=== PATIENT | male | born 1995 | race African-American/Black ===

== ENCOUNTER 2016-10-10 23:04 | Day surgery (SDC) | payer OTHER ==
[~2016-10-10] VITALS: Ht 170.2 cm; Wt 70.3 kg
[2016-10-11] VITALS (9 sets, daily range): BP systolic 110–138; BP diastolic 55–67
[2016-10-11] MEDS ORDERED: ONDANSETRON 4MG/2ML VIAL (J2405) As Ordered ONE ×2 (00:19→13:28)
[2016-10-11] MEDS ORDERED: HYDROmorphone HCL 1 MG/ML SYRINGE (J1170) As Ordered ONE ×2 (00:19→03:56)
[2016-10-11 00:40] LABS: BASO # 0.1 K/mm3 (0.0-0.2); BASO % 1.1 % (0.0-1.0); EOS # 0.1 K/mm3 (0.0-0.50); LARGE UNSTAINED CELL # 0.1 K/mm3 (0.0-0.4); LARGE UNSTAINED CELL % 0.9 % (0.0-4.0); LYMPH # 0.8 K/mm3 (1.5-6.5); MEAN CORPUSCULAR HEMOGLOBIN 27.2 pg (27.0-33.0); MEAN CORPUSCULAR HGB CONC 31.2 g/dl (32.0-36.5); MONO # 0.5 K/mm3 (0.0-0.8); MONO % 5.1 % (0.0-5.0); NEUTROPHILS # 8.6 K/mm3 (1.8-7.7); NEUTROPHILS % 84.8 % (36.0-66.0); PLATELET COUNT, AUTOMATED 170 k/mm3 (150-450); RED CELL DISTRIBUTION WIDTH 12.9 % (11.5-14.5); WHITE BLOOD COUNT 10.2 K/mm3 (4.0-10.0)
[2016-10-11 00:53] LABS: ALBUMIN 4.2 GM/DL (3.2-5.2); ALBUMIN/GLOBULIN RATIO 1.08 (1.00-1.93); BILIRUBIN,DIRECT 0.2 MG/DL (0.0-0.2); BILIRUBIN,TOTAL 0.9 MG/DL (0.2-1.0); CALCIUM LEVEL 9.1 MG/DL (8.5-10.1); CREATININE FOR GFR 1.67 MG/DL (0.70-1.30); GLOMERULAR FILTRATION RATE 54.5 (>60); TOTAL PROTEIN 8.1 GM/DL (6.4-8.2)
[2016-10-11] MEDS ORDERED: ISOVUE-370 76% 100ML VIAL (Q9967) As Ordered ONE (02:04)
--- NOTE | 2016-10-11 03:10 | REPUSA ---
CLINICAL HISTORY: Abdominal pain. TECHNIQUE: Multiple axial, sagittal and coronal CT images were obtained through the abdomen and pelvi s after administration of oral and intravenous contrast material. Images were obtained before and aft er IV contrast administration. COMMENTS: The liver is of uniform attenuation without mass or defect. There is no intra or extrahepatic biliary ductal dilatation. The spleen is normal. The gallbladder is within normal limits. The pancreas is of normal contour and attenuation characteristics. There is no evidence of adrenal mass. Both kidneys demonstrate prompt and equal nephrograms. The kidneys are normal in size, shape and conf iguration. There is no evidence of renal or ureteral mass. No renal or ureteral calculi are identifie d. There is no hydroureter or hydronephrosis. Enlarged appendix measuring 1.3 cm. Abnormal enhancement of its wall. Surrounding 3 fluid and fat str anding. There is no bowel wall thickening. No evidence for small or large bowel obstruction. There is no evidence of intrinsic or extrinsic bladder mass. Mild diffuse thickening of the wall of t he bladder. It can progress to the stomach. Images of the lung bases show no evidence of pleural or parenchymal mass. There are no pleural effusi ons. The bony structures are free of lytic or blastic lesions. Multilevel degenerative changes are seen in volving the thoracolumbar spine. Scattered calcifications are seen involving the aorta and major bran ches compatible with atherosclerosis. IMPRESSION: Acute appendicitis. No perforation or abscess formation. Gastroparesis. Thickened bladder. Thank you for your kind referral of this patient.
[2016-10-11] MEDS ORDERED: ZOSYN 3.375 GM VIAL (J2543) As Ordered ONE (03:45)
[2016-10-11] MEDS ORDERED: LR 1,000 ML IV SCH ×2 (04:01→15:15)
[2016-10-11] MEDS ORDERED: NORCO, ANEXSIA 5/325MG TABLET (HYDROcodone/ACETAMINOPHEN) PO PRN (04:15)
[2016-10-11] MEDS ORDERED: ONDANSETRON 4MG/2ML VIAL (J2405) IV PRN ×2 (04:15→15:15)
[2016-10-11] MEDS ORDERED: ACETAMINOPHEN TAB 650MG DOSE (2X325MG) PO PRN (04:15)
--- NOTE | 2016-10-11 04:40 | EDDOCDS ---
Physician Documentation [facility] Name: Juan Diego Vences Age: 20 yrs Sex: Male : 1995 Arrival Date: 10/10/2016 Time: 23:04 Bed 8 Private MD: KSRHIANNON QUINTERO Disposition: 10/11/16 03:30 Hospitalization ordered by Yunior Partida for Inpatient Admission. Preliminary diagnosis is Acute appendicitis with localized peritonitis. - Bed requested for M PED. - Status is Inpatient Admission. jp6 - Condition is Stable. - Problem is new. - Symptoms have improved. Historical: - Allergies: No known drug Allergies; - Home Meds: 1. ibuprofen 300 mg oral tab as needed - PMHx: none; - PSHx: none; - Social history: Smoking status: Patient states was never smoker of tobacco. No barriers to communication noted, The patient speaks fluent Amharic, Speaks appropriately for age. - Family history: Not pertinent. - : The pt / caregiver states he / she is not on anticoagulants. Home medication list is obtained from the patient. - Exposure Risk Screening:: None identified. Vital Signs: 10/10 23:06 BP 151 / 70; Pulse 89; Resp 18 S; Temp 96.7(O); Pulse Ox 100% on R/A; Weight 70.31 kg / dd6 155.01 lbs (R); Height 5 ft. 7 in. (170.18 cm) (R); Pain 10/10; 10/11 00:29 BP 134 / 75 (auto/); jp6 00:30 Pulse 86 MON; Pulse Ox 100% ; jp6 00:59 BP 132 / 69 (auto/); jp6 01:00 Pulse 78 MON; Pulse Ox 98% ; jp6 01:29 BP 135 / 63 (auto/); jp6 01:31 Pulse 82 MON; Pulse Ox 96% ; jp6 01:59 BP 123 / 61 (auto/); jp6 02:00 Pulse 80 MON; Pulse Ox 95% ; jp6 04:02 BP 133 / 63 (auto/); jp6 04:03 Pulse 82 MON; Pulse Ox 96% ; jp6 04:03 Temp 99(O); Pain 6/10; jp6 04:03 Pulse 82 MON; Pulse Ox 96% ; jp6 10/10 23:06 Body Mass Index 24.28 (70.31 kg, 170.18 cm) dd6 MDM: 00:14 Financial registration complete. slh 00:17 IV Saline Lock ordered. cs11 00:17 NS 0.9% 2000 ml IV at bolus once ordered. cs11 00:17 Dilaudid - HYDROmorphone 1 mg IVP once ordered. cs11 00:17 Ondansetron 4 mg IVP once ordered. cs11 00:18 CBC with Diff Ordered. EDMS 00:18 MED Profile Ordered. EDMS 00:18 Liver Profile Ordered. EDMS 00:18 Amylase Ordered. EDMS 00:18 Lipase Ordered. EDMS 00:18 Pt & Aptt Ordered. EDMS 00:19 CT ABD & PELVIS: IV Contrast Only Ordered. EDMS 01:39 CBC with Diff Reviewed. cs11 01:39 MED Profile Reviewed. cs11 01:39 Liver Profile Reviewed. cs11 01:39 Amylase Reviewed. cs11 01:39 Lipase Reviewed. cs11 01:39 Pt & Aptt Reviewed. cs11 01:43 [facility] [place] [facility] Payment Agreement was scanned into [employer] and attached to record. [facility] 03:27 Piperacillin-Tazobactam 3.375 grams IVPB once over 30 mins; dilute in 50mL of NS or D5W cs11 ordered. 03:27 CT ABD & PELVIS: IV Contrast Only Reviewed. cs11 03:27 BED REQUEST+ADM ordered. EDMS 03:55 Dilaudid - HYDROmorphone 1 mg IVP once ordered. cs11 04:06 Admission / Observation Status ordered. EDMS 04:06 NPO DIET ordered. EDMS Administered Medications: 00:30 Drug: NS 0.9% 2000 ml [sodium chloride 0.9 % intravenous solution] Route: IV; Rate: jp6 bolus; Site: right antecubital; 00:30 Drug: Dilaudid - HYDROmorphone 1 mg [hydromorphone 1 mg/mL injection syringe (1 mL)] jp6 Route: IVP; Site: right antecubital; 00:30 Drug: Ondansetron 4 mg Route: IVP; Site: right antecubital; jp6 04:04 Drug: Piperacillin-Tazobactam 3.375 grams [piperacillin-tazobactam 3.375 gram jp6 intravenous solution] Route: IVPB; Infused Over: 30 mins; Site: right antecubital; 04:05 Drug: Dilaudid - HYDROmorphone 1 mg [hydromorphone 1 mg/mL injection syringe (1 mL)] jp6 Route: IVP; Site: right antecubital; Signatures: Dispatcher [employer] Essie Mcdonald, RN RN kmg1 Ciro , BROCK Jeffery RN, Craig, DO DO [facility] Katiuska Yeboah [facility] Bridget Gomez RN RN jp6 The chart was reviewed and I authenticate all verbal orders and agree with the evaluation and treatment provided.Attachments: 01:43 [facility] Payment Agreement [facility] MTDD
--- NOTE | 2016-10-11 04:40 | EDDOCDS ---
Nurse's Notes [facility] Name: Juan Diego eVnces Age: 20 yrs Sex: Male : 1995 Arrival Date: 10/10/2016 Time: 23:04 Bed 8 Private MD: WVRHIANNON QUINTERO Diagnosis: Acute appendicitis with localized peritonitis Presentation: 10/10 23:08 Presenting complaint: Patient states: Abdominal pain diffuse for approx 1 hour. kmg1 Vomiting. Risk factors: the patient reports not having a history of previous torsion. Adult Sepsis Screening: The patient does not have new or worsening altered mentation. Patient's respiratory rate is less than 22. Systolic blood pressure is greater than 100. Patient has a qSOFA score of 0- Negative Sepsis Screen. Suicide/Homicide risk assessment- the patient denies having any suicidal and/or homicidal ideations and does not present with any other emotional, behavioral or mental health complaints. 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 Transition of care: patient was not received from another setting of care. 23:08 Acuity: STEVEN Level 3 km 23:08 Method Of Arrival: Walkin/Carried/Asstd km Triage Assessment: 23:11 General: Appears uncomfortable, Behavior is appropriate for age, cooperative. Pain: kmg1 Location: abdomen Pain currently is 10 out of 10 on a pain scale. Quality of pain is described as squeezing, Pain began 1 hour ago. Pt Declines HIV testing. GI: Reports lower abdominal pain, upper abd pain, vomiting. Historical: - Allergies: No known drug Allergies; - Home Meds: 1. ibuprofen 300 mg oral tab as needed - PMHx: none; - PSHx: none; - Social history: Smoking status: Patient states was never smoker of tobacco. No barriers to communication noted, The patient speaks fluent Tanzanian, Speaks appropriately for age. - Family history: Not pertinent. - : The pt / caregiver states he / she is not on anticoagulants. Home medication list is obtained from the patient. - Exposure Risk Screening:: None identified. Screenin/16 00:09 Screening information is obtained from the patient. Fall risk: No risks identified. jp6 Assistance ADL's: requires no assistance with activities of daily living. Abuse/DV Screen: The patient / caregiver reports he/she is: not in a situation that causes fear, pain or injury. Nutritional screening: No deficits noted. Advance Directives: Currently, there is no health care proxy. There is no active DNR order. There is no living will. home support is adequate. Assessment: 00:09 General: Appears distressed, uncomfortable, well developed, well nourished, Behavior is jp6 appropriate for age, cooperative. Pain: Location: abdomen Pain currently is 8 out of 10 on a pain scale. Neurological: No deficits noted. Level of Consciousness is awake, alert, Oriented to person, place, time. EENT: No deficits noted. Cardiovascular: No deficits noted. Heart tones S1 S2 present. Respiratory: Airway is patent Respiratory effort is even, unlabored, Respiratory pattern is regular, symmetrical, Breath sounds are clear bilaterally. GI: Abdomen is flat, non- distended Bowel sounds present X 4 quads. hyperactive in right upper quadrant, left upper quadrant, right lower quadrant and left lower quadrant Abd is tender to palpation in right lower quadrant Abd is rigid Guarding noted. : No deficits noted. Derm: Skin is pink, warm & dry. Musculoskeletal: No deficits noted. 01:00 Reassessment: states pain is 4/10. Pain: Pain currently is 4 out of 10 on a pain scale. jp6 Cardiovascular: No deficits noted. Respiratory: Airway is patent Respiratory effort is even, unlabored, Respiratory pattern is regular, symmetrical. Derm: Skin is pink, warm & dry. 02:00 Reassessment: Patient appears in no apparent distress at this time. Patient states jp6 feeling better. General: Appears in no apparent distress, comfortable, Behavior is appropriate for age, cooperative. Pain: Pain currently is 3 out of 10 on a pain scale. Neurological: Level of Consciousness is awake, alert, Oriented to person, place, time. Respiratory: Airway is patent Respiratory effort is even, unlabored, Respiratory pattern is regular, symmetrical. Derm: Skin is pink, warm & dry. 02:54 Reassessment: Patient appears in no apparent distress at this time. Patient states jp6 feeling better. Pain: Location: abdomen Pain currently is 4 out of 10 on a pain scale. Respiratory: Airway is patent Respiratory effort is even, unlabored, Respiratory pattern is regular, symmetrical. Derm: Skin is pink, warm & dry. 04:15 Reassessment: c/o abdominal pain 6/10. VS stable. IV antibiotics infusing as ordered.. jp6 Pain: Location: abdomen Pain currently is 6 out of 10 on a pain scale. Neurological: Level of Consciousness is awake, alert, Oriented to person, place, time. EENT: No deficits noted. Cardiovascular: No deficits noted. Respiratory: Airway is patent Respiratory effort is even, unlabored, Respiratory pattern is regular, symmetrical. Derm: Skin is pink, warm & dry. Vital Signs: 10/10 23:06 BP 151 / 70; Pulse 89; Resp 18 S; Temp 96.7(O); Pulse Ox 100% on R/A; Weight 70.31 kg dd6 (R); Height 5 ft. 7 in. (170.18 cm) (R); Pain 10; 10/11 00:29 BP 134 / 75 (auto/); jp6 00:30 Pulse 86 MON; Pulse Ox 100% ; jp6 00:59 BP 132 / 69 (auto/); jp6 01:00 Pulse 78 MON; Pulse Ox 98% ; jp6 01:29 BP 135 / 63 (auto/); jp6 01:31 Pulse 82 MON; Pulse Ox 96% ; jp6 01:59 BP 123 / 61 (auto/); jp6 02:00 Pulse 80 MON; Pulse Ox 95% ; jp6 04:02 BP 133 / 63 (auto/); jp6 04:03 Pulse 82 MON; Pulse Ox 96% ; jp6 04:03 Temp 99(O); Pain 6/10; jp6 04:03 Pulse 82 MON; Pulse Ox 96% ; jp6 10/10 23:06 Body Mass Index 24.28 (70.31 kg, 170.18 cm) dd6 Vitals: 10/10 23:06 Log In Time: October 10, 2016 at 23:04. dd6 ED Course: 23:05 Patient visited by Prakash Berry PCA. dd6 23:05 [facility] dd6 23:05 Patient moved to Waiting dd6 23:06 Patient moved to Pre RCE dd6 23:10 Triage Initiated kmg1 23:53 Patient moved to 8 kmg1 23:54 Bridget Gomez,RN is Primary Nurse. jp6 23:54 Quincy Vela DO is Attending Physician. cs11 23:54 Patient visited by Quincy Vela DO. cs11 10/11 00:09 The patient / caregiver is instructed regarding the plan of care and ED course. jp6 00:09 Inserted saline lock: 20 gauge in right antecubital area and blood collected. No jp6 procedures done that require assistance. 00:54 Patient visited by Lisbet Galindo PCA. negro 01:43 [facility] Payment Agreement was scanned into [employer] and attached to record. [facility] 02:02 Patient visited by Bridget Gomez RN. jp6 03:03 Patient visited by Lisbet Galindo PCA. negro 03:19 CT ABD & PELVIS: IV Contrast Only Returned. EDMS 03:30 Yunior Partida MD is Hospitalizing Provider. cs11 04:15 Pulse ox on. NIBP on. jp6 Administered Medications: 00:30 Drug: NS 0.9% 2000 ml [sodium chloride 0.9 % intravenous solution] Route: IV; Rate: jp6 bolus; Site: right antecubital; 00:30 Drug: Dilaudid - HYDROmorphone 1 mg [hydromorphone 1 mg/mL injection syringe (1 mL)] jp6 Route: IVP; Site: right antecubital; 00:30 Drug: Ondansetron 4 mg Route: IVP; Site: right antecubital; jp6 04:04 Drug: Piperacillin-Tazobactam 3.375 grams [piperacillin-tazobactam 3.375 gram jp6 intravenous solution] Route: IVPB; Infused Over: 30 mins; Site: right antecubital; 04:05 Drug: Dilaudid - HYDROmorphone 1 mg [hydromorphone 1 mg/mL injection syringe (1 mL)] jp6 Route: IVP; Site: right antecubital; Order Results: Lab Order: CBC with Diff; SPEC'M 10/11/16 00:05 Test: WHITE BLOOD COUNT; Value: 10.2; Range: 4.0-10.0; Abnormal: Above high normal; Units: K/mm3; Status: F Test: RED BLOOD COUNT; Value: 5.19; Range: 4.30-6.10; Units: M/mm3; Status: F Test: HEMOGLOBIN; Value: 14.1; Range: 14.0-18.0; Units: g/dl; Status: F Test: HEMATOCRIT; Value: 45.2; Range: 42.0-52.0; Units: %; Status: F Test: MEAN CORPUSCULAR VOLUME; Value: 87.0; Range: 80.0-96.0; Units: fl; Status: F Test: MEAN CORPUSCULAR HEMOGLOBIN; Value: 27.2; Range: 27.0-33.0; Units: pg; Status: F Test: MEAN CORPUSCULAR HGB CONC; Value: 31.2; Range: 32.0-36.5; Abnormal: Below low normal; Units: g/dl; Status: F Test: RED CELL DISTRIBUTION WIDTH; Value: 12.9; Range: 11.5-14.5; Units: %; Status: F Test: PLATELET COUNT, AUTOMATED; Value: 170; Range: 150-450; Units: k/mm3; Status: F Test: NEUTROPHILS %; Value: 84.8; Range: 36.0-66.0; Abnormal: Above high normal; Units: %; Status: F Test: LYMPH %; Value: 7.0; Range: 24.0-44.0; Abnormal: Below low normal; Units: %; Status: F Test: MONO %; Value: 5.1; Range: 0.0-5.0; Abnormal: Above high normal; Units: %; Status: F Test: EOS %; Value: 1.0; Range: 0.0-3.0; Units: %; Status: F Test: BASO %; Value: 1.1; Range: 0.0-1.0; Abnormal: Above high normal; Units: %; Status: F Test: LARGE UNSTAINED CELL %; Value: 0.9; Range: 0.0-4.0; Units: %; Status: F Test: NEUTROPHILS #; Value: 8.6; Range: 1.8-7.7; Abnormal: Above high normal; Units: K/mm3; Status: F Test: LYMPH #; Value: 0.8; Range: 1.5-6.5; Abnormal: Below low normal; Units: K/mm3; Status: F Test: MONO #; Value: 0.5; Range: 0.0-0.8; Units: K/mm3; Status: F Test: EOS #; Value: 0.1; Range: 0.0-0.50; Units: K/mm3; Status: F Test: BASO #; Value: 0.1; Range: 0.0-0.2; Units: K/mm3; Status: F Test: LARGE UNSTAINED CELL #; Value: 0.1; Range: 0.0-0.4; Units: K/mm3; Status: F Lab Order: MED Profile; SPEC'M 10/11/16 00:05 Test: GLUCOSE, FASTING; Value: 91; Range: 70-105; Units: MG/DL; Status: F Test: BLOOD UREA NITROGEN; Value: 16; Range: 7-18; Units: MG/DL; Status: F Test: CREATININE FOR GFR; Value: 1.67; Range: 0.70-1.30; Abnormal: Above high normal; Units: MG/DL; Status: F Test: GLOMERULAR FILTRATION RATE; Value: 54.5; Range: >60; Abnormal: Below low normal; Status: F Test: SODIUM LEVEL; Value: 141; Range: 136-145; Units: MEQ/L; Status: F Test: POTASSIUM SERUM; Value: 4.0; Range: 3.5-5.1; Units: MEQ/L; Status: F Test: CHLORIDE LEVEL; Value: 102; Range: 98-107; Units: MEQ/L; Status: F Test: CARBON DIOXIDE LEVEL; Value: 31; Range: 21-32; Units: MEQ/L; Status: F Test: ANION GAP; Value: 8; Range: 8-16; Units: MEQ/L; Status: F Test: CALCIUM LEVEL; Value: 9.1; Range: 8.5-10.1; Units: MG/DL; Status: F Test Note: ; Units are mL/min/1.73 m2 Chronic Kidney Disease Staging per NKF: Stage I & II GFR >=60 Normal to Mildly Decreased Stage III GFR 30-59 Moderately Decreased Stage IV GFR 15-29 Severely Decreased Stage V GFR <15 Very Little GFR Left ESRD GFR <15 on CLASSIFIED AD CLERK Lab Order: Liver Profile; SPEC'M 10/11/16 00:05 Test: AST/SGOT; Value: 188; Range: 15-37; Abnormal: Above high normal; Units: U/L; Status: F Test: ALT/SGPT; Value: 80; Range: 12-78; Abnormal: Above high normal; Units: U/L; Status: F Test: ALKALINE PHOSPHATASE; Value: 132; Range: 45-117; Abnormal: Above high normal; Units: U/L; Status: F Test: BILIRUBIN,TOTAL; Value: 0.9; Range: 0.2-1.0; Units: MG/DL; Status: F Test: BILIRUBIN,DIRECT; Value: 0.2; Range: 0.0-0.2; Units: MG/DL; Status: F Test: TOTAL PROTEIN; Value: 8.1; Range: 6.4-8.2; Units: GM/DL; Status: F Test: ALBUMIN; Value: 4.2; Range: 3.2-5.2; Units: GM/DL; Status: F Test: ALBUMIN/GLOBULIN RATIO; Value: 1.08; Range: 1.00-1.93; Status: F Lab Order: Amylase; SPEC' 10/11/16 00:05 Test: AMYLASE; Value: 129; Range: 25-115; Abnormal: Above high normal; Units: U/L; Status: F Lab Order: Lipase; SPEC' 10/11/16 00:05 Test: LIPASE; Value: 88; Range: 73-393; Units: U/L; Status: F Lab Order: Pt & Aptt; SPEC' 10/11/16 00:05 Test: PROTHROMBIN TIME; Value: 13.3; Range: 12.3-14.5; Units: SECONDS; Status: F Test: INR; Value: 1.00; Status: F Test: PARTIAL THROMBOPLASTIN TIME; Value: 31.4; Range: 26.6-37.1; Units: SECONDS; Status: F Test Note: ; THERAPUTIC HUMAN INR VALUES INDICATIONS NORMAL RANGES PROPHYLAXIS/TREATMENT OF: VENOUS THROMBOSIS 2.0-3.0 PULMONARY EMBOLISM 2.0-3.0 PREVENTION OF SYSTEMIC EMBOLISM FROM: TISSUE HEART VALVES 2.0-3.0 ACUTE MYOCARDIAL INFARCTION 2.0-3.0 VALVULAR HEART DISEASE 2.0-3.0 ATRIAL FIBRILLATION 2.0-3.0 MECHANICAL VALVES(HIGH RISK) 2.5-3.5 RECURRENT MYOCARDIAL INFARCTION 2.5-3.5 Radiology Order: CT ABD & PELVIS: IV Contrast Only Test: CT ABD & PELVIS: IV Contrast Only REASON FOR EXAMINATION: Appendicitis; ; CLINICAL HISTORY: Abdominal pain.; TECHNIQUE: Multiple axial, sagittal and coronal CT images were obtained through the abdomen and pelvi; s after administration of oral and intravenous contrast material. Images were obtained before and aft; er IV contrast administration.; COMMENTS:; The liver is of uniform attenuation without mass or defect. There is no intra or extrahepatic biliary; ductal dilatation. The spleen is normal. The gallbladder is within normal limits. The pancreas is of; normal contour and attenuation characteristics. There is no evidence of adrenal mass.; Both kidneys demonstrate prompt and equal nephrograms. The kidneys are normal in size, shape and conf; iguration. There is no evidence of renal or ureteral mass. No renal or ureteral calculi are identifie; d. There is no hydroureter or hydronephrosis.; Enlarged appendix measuring 1.3 cm. Abnormal enhancement of its wall. Surrounding 3 fluid and fat str; anding. There is no bowel wall thickening. No evidence for small or large bowel obstruction.; There is no evidence of intrinsic or extrinsic bladder mass. Mild diffuse thickening of the wall of t; he bladder. It can progress to the stomach.; Images of the lung bases show no evidence of pleural or parenchymal mass. There are no pleural effusi; ons.; The bony structures are free of lytic or blastic lesions. Multilevel degenerative changes are seen in; volving the thoracolumbar spine. Scattered calcifications are seen involving the aorta and major bran; ches compatible with atherosclerosis.; IMPRESSION:; Acute appendicitis.; No perforation or abscess formation.; Gastroparesis.; Thickened bladder.; Thank you for your kind referral of this patient.; ; Outcome: 03:30 Decision to Hospitalize by Provider. cs11 04:27 Discharge Assessment: Patient awake, alert and oriented x 3. No cognitive and/or jp6 functional deficits noted. Patient verbalized understanding of disposition instructions. patient administered narcotics - yes. Patient was admitted to the hospital or transferred to another facility. The following High Risk Discharge criteria are identified: None. Admitted to Pediatrics accompanied by tech, via stretcher, with chart. Condition: unchanged. CT Study completed. Admission hand-off: Report called to Bridget GUTIÉRREZ. Property :Personal belongings accompany Pt. 04:39 Patient left the ED. jp6 Signatures: Dispatcher [employer] EDMS Rosado, Essie, RN RN kmg1 Prakash Berry, MARINE EXTENSION AGENT MARINE EXTENSION AGENT dd6 Lisbet Galindo, MARINE EXTENSION AGENT MARINE EXTENSION AGENT negro Quincy Vela, DO DO cs11 Katiuska Yeboah Jessica,RN RN jp6 MTDD
[2016-10-11] MEDS: metroNIDAZOLE 500 MG in APPROPRIATE DILUENT 1 EA IV SCH ×2 (05:55→17:11)
[2016-10-11] MEDS: AMPICILLIN SOD/SULBACTAM SOD 3 GM in D5W MINI-BAG PLUS 100 ML IV SCH ×2 (08:25→17:11)
[2016-10-11] MEDS: MORPHINE 4 MG/ML 1ML SYRINGE IV PRN ×3 (08:26→17:51)
--- NOTE | 2016-10-11 10:11 | HPE ---
DATE OF ADMISSION: 10/11/2016 CHIEF COMPLAINT: Abdominal pain. HISTORY OF PRESENT ILLNESS: Mr. 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 last night after about a 3-hour history of ongoing and increasing right-sided abdominal pain. The patient was in his usual state of health until roughly at about 06:00 p.m. when he started having some crampy generalized abdominal pain, later on becoming sharp and constant, localizing to the periumbilical area, and also radiating to the right lower quadrant area. It was associated with nausea, a couple episodes of vomiting. He denies any sick contacts or eating any usual food. No other members of his household are sick. Due to the increasing severity, he presented to the emergency department. He was worked up and found to have evidence for acute appendicitis. ALLERGIES: No known drug allergies. HOME MEDICATIONS: The patient took ibuprofen as needed. PAST SURGICAL HISTORY: None. PAST HISTORY FOR GENERAL ANESTHESIA: None. 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 He denies smoking. Occasional alcohol use. Denies any recreational drug use. REVIEW OF SYSTEMS: The patient was in his usual state of health prior to the abdominal pain starting. Multisystem review is all negative except those mentioned in history of present illness (HPI). PHYSICAL EXAMINATION: The patient is seen laying in the bed, appears mildly uncomfortable secondary to ongoing abdominal pain. Otherwise pleasant and cooperative. Appears well built. Skin is warm and dry. Normocephalic, atraumatic. No facial asymmetry. No facial or scalp lesions noted. He has pink palpebral conjunctivae and anicteric sclerae. Lips appear mildly dry. Neck is supple. No thyromegaly. No palpable lymphadenopathies. No chest wall abnormalities. Lung sounds are clear to auscultation bilaterally. No wheezing appreciated. Heart: Rate and rhythm are regular with no murmurs. Abdomen: Is flat, soft, mildly distended, slightly tympanitic on percussion, tender over the right lower quadrant area over at McBurney's point. Slight rebound tenderness locally. Mild radiation of pain towards the right lower quadrant when palpating the left lower quadrant area. Small umbilical hernia appreciated, reducible. No hepatosplenomegaly. No masses palpable. Extremities: Without any deformities. LABORATORY: White cell count is 10.2, hemoglobin 14.1, hematocrit 45.2, platelet count 170, neutrophils are 85%. Chemistries: Sodium 141, potassium 4.0, chloride is 102, CO2 31, BUN of 16, creatinine is 1.67, glucose 91, AST 188, ALT 83, alkaline phosphatase 132, total bilirubin 0.9, amylase 129, lipase 88. IMAGING STUDIES: CT of the abdomen and pelvis was done. This was done with contrast. I reviewed the images myself. Findings include evidence for acute appendicitis, enlarged appendix measuring 1.3 cm, with abnormal enhancement of its wall, surrounding free fluid and fat stranding, no bowel wall thickening, no evidence for small or large bowel obstruction. IMPRESSION: Acute appendicitis with localized peritonitis. Patient is receiving Unasyn and metronidazole which should be adequate in coverage for the disease. We are awaiting availability of the operating room. I have discussed with the patient the need for surgery, the benefits of the surgery and risks on doing the surgery as well as the details of the procedure. We are going to perform laparoscopic appendectomy. Consent was obtained from the patient. I expect the patient probably will stay overnight for continuation of perioperative antibiotics and pain control. QUINTEN
[2016-10-11] MEDS ORDERED: BUPIVACAINE HCL 0.25% 30 ML VIAL As Ordered ONE (11:37)
[2016-10-11] MEDS ORDERED: LIDOCAINE 1% SDV INJ 30 ML VIAL As Ordered ONE (11:37)
[2016-10-11] MEDS ORDERED: ROCURONIUM BROMIDE 50 MG/5 ML VIAL As Ordered ONE (13:27)
[2016-10-11] MEDS ORDERED: PROPOFOL 200 MG/20 ML VIAL As Ordered ONE (13:27)
[2016-10-11] MEDS ORDERED: GLYCOPYRROLATE INJ 0.2 MG/ML 2 ML VIAL As Ordered ONE (13:27)
[2016-10-11] MEDS ORDERED: fentaNYL 100 MCG/2 ML INJECTION (J3010) As Ordered ONE ×2 (13:27→14:13)
[2016-10-11] MEDS ORDERED: MIDAZOLAM INJ 2 MG/2 ML VIAL (J2250) As Ordered ONE (13:27)
[2016-10-11] MEDS ORDERED: KETOROLAC 60 MG/2 ML VIAL (J1885) As Ordered ONE (13:28)
[2016-10-11] MEDS ORDERED: NEOSTIGMINE 1MG/ML 5 ML SYRINGE (J2710) As Ordered ONE (13:28)
[2016-10-11] MEDS ORDERED: LIDOCAINE 2% INJ 100 MG/5 ML SDV (FOR ANES.) As Ordered ONE (13:28)
[2016-10-11] MEDS ORDERED: UNASYN 1.5 GM VIAL As Ordered ONE (13:44)
[2016-10-11] MEDS ORDERED: metroNIDAZOLE/NACL 500MG(5MG/ML)100 ML BAG (S0030) As Ordered ONE (13:44)
[2016-10-11] MEDS ORDERED: METOCLOPRAMIDE INJ 10MG/2ML VIAL (J2765) IV PRN (15:15)
[2016-10-11] MEDS ORDERED: PERCOCET 5MG/325MG TAB PO PRN (15:15)
[2016-10-11] MEDS ORDERED: fentaNYL 100 MCG/2 ML INJECTION (J3010) IV PRN (15:15)
[2016-10-11] MEDS ORDERED: PERCOCET 5MG/325MG TAB As Ordered ONE (15:43)
[2016-10-11] MEDS ORDERED: MORPHINE 10 MG/ML 1ML VIAL As Ordered ONE (15:43)
[2016-10-11] MEDS: MORPHINE 2 MG/ML 1ML SYRINGE IV PRN ×5 (15:48→16:08)
--- NOTE | 2016-10-11 18:44 | RO ---
DATE OF PROCEDURE: 10/11/2016 PREOPERATIVE DIAGNOSIS: Acute appendicitis. DIAGNOSIS: Acute appenditis. PROCEDURE: Laparoscopic appendectomy. SURGEON: Dr. Partida. SENIOR MEDICAL TRANSCRIPTIONIST: None. ANESTHESIA: General anesthesia. ESTIMATED BLOOD LOSS: Less than 25 mL. COMPLICATIONS: None. SPECIMENS: Appendix. Otherwise the patient tolerated the procedure well. 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 I saw him in the artery was started on intravenous (IV) antibiotics. Once was the operating room was available was brought to the operating room (OR), placed on the table. We used the compression boots for deep venous thrombosis (DVT) prophylaxis. General endotracheal anesthesia started without any problems. His abdomen prepped and draped in usual sterile fashion. After surgical time-out we began our surgery. I created a small transverse incision top of his umbilicus, deepened to the anterior fascia. A Veress needle placed in a controlled fashion. Intraabdominal placement confirmed with saline drop technique. CO2 insufflation started to pressure of 15 mmHg. Using the same incision a 12 mm Visiport was placed under direct vision of laparoscope. The insertion site was inspected for injury, none was found. He was placed in Trendelenburg position right side tilted up roughly about 40 degrees to further expose the appendix under direct vision of 5 mm suprapubic port. A 5 mm left lower quadrant port was placed. Diagnostic laparoscopy of visualized portions of bowel appear normal within normal limits. There is some mild irritation behind the cecum. The appendix was located. This was thickened throughout its course. No perforation or ischemia noted. No free fluid noted. The appendix was placed into view and a window created at the base of the appendix in between the appendix and the mesoappendix with a [place] instrument using a linear stapler with a blue load. The appendix was divided at its base. The staple line was inspected and there was no bleeding noted. The mesoappendix was further dissected free and a second firing of the same linear stapler with vascular load was done to disconnect the appendix from the mesoappendix . After this, I inspected the staple lines. There is a few points of bleeding into the na, easily controlled with Bovie cautery. The appendix was through an EndoCatch bag retrieved through umbilical port site under insufflation. We inspected the surgical site and once satisfied of the hemostasis, the abdomen was deflated. All ports removed. The umbilical fascial defect repaired in #0 Vicryl in mattress fashion. All skin incisions closed with #4-0 Monocryl in subcuticular fashion. Steri-Strips and gauze dressings placed over the incision. The patient promptly awakened, extubated, brought to recovery room stable. QUINTEN
[2016-10-11] MEDS: NORCO, ANEXSIA 5/325MG TABLET (HYDROcodone/ACETAMINOPHEN) PO PRN (21:16)
[2016-10-12] VITALS: BP 126/60
[2016-10-12 04:00] VITALS: BP 120/70
[2016-10-12] MEDS: NORCO, ANEXSIA 5/325MG TABLET (HYDROcodone/ACETAMINOPHEN) PO PRN ×2 (04:14→08:37)
[2016-10-12 08:00] VITALS: BP 121/58
[2016-10-12] MEDS ORDERED: NORCOTAB PO (10:50)
--- NOTE | 2016-10-13 05:40 | EDDOCDS ---
Physician Documentation [facility] Name: Juan Diego Vences Age: 20 yrs Sex: Male : 1995 Arrival Date: 10/10/2016 Time: 23:04 Bed 8 Private MD: TNRHIANNON QUINTERO Disposition: 10/11/16 03:30 Hospitalization ordered by Yunior Partida for Inpatient Admission. Preliminary diagnosis is Acute appendicitis with localized peritonitis. - Bed requested for M PED. - Status is Inpatient Admission. jp6 - Condition is Stable. - Problem is new. - Symptoms have improved. Historical: - Allergies: No known drug Allergies; - Home Meds: 1. ibuprofen 300 mg oral tab as needed - PMHx: none; - PSHx: none; - Social history: Smoking status: Patient states was never smoker of tobacco. No barriers to communication noted, The patient speaks fluent Tajik, Speaks appropriately for age. - Family history: Not pertinent. - : The pt / caregiver states he / she is not on anticoagulants. Home medication list is obtained from the patient. - Exposure Risk Screening:: None identified. Vital Signs: 10/10 23:06 BP 151 / 70; Pulse 89; Resp 18 S; Temp 96.7(O); Pulse Ox 100% on R/A; Weight 70.31 kg / dd6 155.01 lbs (R); Height 5 ft. 7 in. (170.18 cm) (R); Pain 10/10; 10/11 00:29 BP 134 / 75 (auto/); jp6 00:30 Pulse 86 MON; Pulse Ox 100% ; jp6 00:59 BP 132 / 69 (auto/); jp6 01:00 Pulse 78 MON; Pulse Ox 98% ; jp6 01:29 BP 135 / 63 (auto/); jp6 01:31 Pulse 82 MON; Pulse Ox 96% ; jp6 01:59 BP 123 / 61 (auto/); jp6 02:00 Pulse 80 MON; Pulse Ox 95% ; jp6 04:02 BP 133 / 63 (auto/); jp6 04:03 Pulse 82 MON; Pulse Ox 96% ; jp6 04:03 Temp 99(O); Pain 6/10; jp6 04:03 Pulse 82 MON; Pulse Ox 96% ; jp6 10/10 23:06 Body Mass Index 24.28 (70.31 kg, 170.18 cm) dd6 MDM: 00:14 Financial registration complete. slh 00:17 IV Saline Lock ordered. cs11 00:17 NS 0.9% 2000 ml IV at bolus once ordered. cs11 00:17 Dilaudid - HYDROmorphone 1 mg IVP once ordered. cs11 00:17 Ondansetron 4 mg IVP once ordered. cs11 00:18 CBC with Diff Ordered. EDMS 00:18 MED Profile Ordered. EDMS 00:18 Liver Profile Ordered. EDMS 00:18 Amylase Ordered. EDMS 00:18 Lipase Ordered. EDMS 00:18 Pt & Aptt Ordered. EDMS 00:19 CT ABD & PELVIS: IV Contrast Only Ordered. EDMS 01:39 CBC with Diff Reviewed. cs11 01:39 MED Profile Reviewed. cs11 01:39 Liver Profile Reviewed. cs11 01:39 Amylase Reviewed. cs11 01:39 Lipase Reviewed. cs11 01:39 Pt & Aptt Reviewed. cs11 01:43 [facility] Payment Agreement was scanned into [employer] and attached to record. [facility] 03:27 Piperacillin-Tazobactam 3.375 grams IVPB once over 30 mins; dilute in 50mL of NS or D5W cs11 ordered. 03:27 CT ABD & PELVIS: IV Contrast Only Reviewed. cs11 03:27 BED REQUEST+ADM ordered. EDMS 03:55 Dilaudid - HYDROmorphone 1 mg IVP once ordered. cs11 04:06 Admission / Observation Status ordered. EDMS 04:06 NPO DIET ordered. EDMS 10:59 T-Sheet-- Draft Copy was scanned into [employer] and attached to record. gb Administered Medications: 00:30 Drug: NS 0.9% 2000 ml [sodium chloride 0.9 % intravenous solution] Route: IV; Rate: jp6 bolus; Site: right antecubital; 00:30 Drug: Dilaudid - HYDROmorphone 1 mg [hydromorphone 1 mg/mL injection syringe (1 mL)] jp6 Route: IVP; Site: right antecubital; 00:30 Drug: Ondansetron 4 mg Route: IVP; Site: right antecubital; jp6 04:04 Drug: Piperacillin-Tazobactam 3.375 grams [piperacillin-tazobactam 3.375 gram jp6 intravenous solution] Route: IVPB; Infused Over: 30 mins; Site: right antecubital; 04:05 Drug: Dilaudid - HYDROmorphone 1 mg [hydromorphone 1 mg/mL injection syringe (1 mL)] jp6 Route: IVP; Site: right antecubital; Signatures: Dispatcher [employer] Essie Mcdonald RN RN kmg1 [facility] [place] Jeffery RN daq Leslie Arnold, Reg Reg gb Quincy Vela, DO cs11 Katiuska Yeboah Jessica, RN RN jp6 The chart was reviewed and I authenticate all verbal orders and agree with the evaluation and treatment provided.Attachments: 01:43 [facility] Payment Agreement [facility] 10:59 T-Sheet-- Draft Copy gb Chart Complete [facility]
--- NOTE | 2016-10-13 05:40 | EDDOCDS ---
Physician Documentation [facility] Name: Juan Diego Vencse Age: 20 yrs Sex: Male : 1995 Arrival Date: 10/10/2016 Time: 23:04 Bed 8 Private MD: INRHIANNON QUINTERO Disposition: 10/11/16 03:30 Hospitalization ordered by Yunior Partida for Inpatient Admission. Preliminary diagnosis is Acute appendicitis with localized peritonitis. - Bed requested for M PED. - Status is Inpatient Admission. jp6 - Condition is Stable. - Problem is new. - Symptoms have improved. Historical: - Allergies: No known drug Allergies; - Home Meds: 1. ibuprofen 300 mg oral tab as needed - PMHx: none; - PSHx: none; - Social history: Smoking status: Patient states was never smoker of tobacco. No barriers to communication noted, The patient speaks fluent Telugu, Speaks appropriately for age. - Family history: Not pertinent. - : The pt / caregiver states he / she is not on anticoagulants. Home medication list is obtained from the patient. - Exposure Risk Screening:: None identified. Vital Signs: 10/10 23:06 BP 151 / 70; Pulse 89; Resp 18 S; Temp 96.7(O); Pulse Ox 100% on R/A; Weight 70.31 kg / dd6 155.01 lbs (R); Height 5 ft. 7 in. (170.18 cm) (R); Pain 10/10; 10/11 00:29 BP 134 / 75 (auto/); jp6 00:30 Pulse 86 MON; Pulse Ox 100% ; jp6 00:59 BP 132 / 69 (auto/); jp6 01:00 Pulse 78 MON; Pulse Ox 98% ; jp6 01:29 BP 135 / 63 (auto/); jp6 01:31 Pulse 82 MON; Pulse Ox 96% ; jp6 01:59 BP 123 / 61 (auto/); jp6 02:00 Pulse 80 MON; Pulse Ox 95% ; jp6 04:02 BP 133 / 63 (auto/); jp6 04:03 Pulse 82 MON; Pulse Ox 96% ; jp6 04:03 Temp 99(O); Pain 6/10; jp6 04:03 Pulse 82 MON; Pulse Ox 96% ; jp6 10/10 23:06 Body Mass Index 24.28 (70.31 kg, 170.18 cm) dd6 MDM: 00:14 Financial registration complete. slh 00:17 IV Saline Lock ordered. cs11 00:17 NS 0.9% 2000 ml IV at bolus once ordered. cs11 00:17 Dilaudid - HYDROmorphone 1 mg IVP once ordered. cs11 00:17 Ondansetron 4 mg IVP once ordered. cs11 00:18 CBC with Diff Ordered. EDMS 00:18 MED Profile Ordered. EDMS 00:18 Liver Profile Ordered. EDMS 00:18 Amylase Ordered. EDMS 00:18 Lipase Ordered. EDMS 00:18 Pt & Aptt Ordered. EDMS 00:19 CT ABD & PELVIS: IV Contrast Only Ordered. EDMS 01:39 CBC with Diff Reviewed. cs11 01:39 MED Profile Reviewed. cs11 01:39 Liver Profile Reviewed. cs11 01:39 Amylase Reviewed. cs11 01:39 Lipase Reviewed. cs11 01:39 Pt & Aptt Reviewed. cs11 01:43 [facility] Payment Agreement was scanned into [employer] and attached to record. [facility] 03:27 Piperacillin-Tazobactam 3.375 grams IVPB once over 30 mins; dilute in 50mL of NS or D5W cs11 ordered. 03:27 CT ABD & PELVIS: IV Contrast Only Reviewed. cs11 03:27 BED REQUEST+ADM ordered. EDMS 03:55 Dilaudid - HYDROmorphone 1 mg IVP once ordered. cs11 04:06 Admission / Observation Status ordered. EDMS 04:06 NPO DIET ordered. EDMS 10:59 T-Sheet-- Draft Copy was scanned into [employer] and attached to record. gb Administered Medications: 00:30 Drug: NS 0.9% 2000 ml [sodium chloride 0.9 % intravenous solution] Route: IV; Rate: jp6 bolus; Site: right antecubital; 00:30 Drug: Dilaudid - HYDROmorphone 1 mg [hydromorphone 1 mg/mL injection syringe (1 mL)] jp6 Route: IVP; Site: right antecubital; 00:30 Drug: Ondansetron 4 mg Route: IVP; Site: right antecubital; jp6 04:04 Drug: Piperacillin-Tazobactam 3.375 grams [piperacillin-tazobactam 3.375 gram jp6 intravenous solution] Route: IVPB; Infused Over: 30 mins; Site: right antecubital; 04:05 Drug: Dilaudid - HYDROmorphone 1 mg [hydromorphone 1 mg/mL injection syringe (1 mL)] jp6 Route: IVP; Site: right antecubital; Signatures: Dispatcher [employer] Essie Mcdonald RN RN kmg1 [facility] [place] Jeffery RN daq Leslie Arnold, Reg Reg gb Quincy Vela, DO cs11 Katiuska Yeboah Jessica, RN RN jp6 The chart was reviewed and I authenticate all verbal orders and agree with the evaluation and treatment provided.Attachments: 01:43 [facility] Payment Agreement [facility] 10:59 T-Sheet-- Draft Copy gb Chart [facility]
--- NOTE | 2016-10-13 05:40 | EDDOCDS ---
Nurse's Notes [facility] Name: Juan Diego Vences Age: 20 yrs Sex: Male : 1995 Arrival Date: 10/10/2016 Time: 23:04 Bed 8 Private MD: TNRHIANNON QUINTERO Diagnosis: Acute appendicitis with localized peritonitis Presentation: 10/10 23:08 Presenting complaint: Patient states: Abdominal pain diffuse for approx 1 hour. kmg1 Vomiting. Risk factors: the patient reports not having a history of previous torsion. Adult Sepsis Screening: The patient does not have new or worsening altered mentation. Patient's respiratory rate is less than 22. Systolic blood pressure is greater than 100. Patient has a qSOFA score of 0- Negative Sepsis Screen. Suicide/Homicide risk assessment- the patient denies having any suicidal and/or homicidal ideations and does not present with any other emotional, behavioral or mental health complaints. 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 Transition of care: patient was not received from another setting of care. 23:08 Acuity: STEVEN Level 3 km 23:08 Method Of Arrival: Walkin/Carried/Asstd km Triage Assessment: 23:11 General: Appears uncomfortable, Behavior is appropriate for age, cooperative. Pain: kmg1 Location: abdomen Pain currently is 10 out of 10 on a pain scale. Quality of pain is described as squeezing, Pain began 1 hour ago. Pt Declines HIV testing. GI: Reports lower abdominal pain, upper abd pain, vomiting. Historical: - Allergies: No known drug Allergies; - Home Meds: 1. ibuprofen 300 mg oral tab as needed - PMHx: none; - PSHx: none; - Social history: Smoking status: Patient states was never smoker of tobacco. No barriers to communication noted, The patient speaks fluent Bahamian, Speaks appropriately for age. - Family history: Not pertinent. - : The pt / caregiver states he / she is not on anticoagulants. Home medication list is obtained from the patient. - Exposure Risk Screening:: None identified. Screenin/16 00:09 Screening information is obtained from the patient. Fall risk: No risks identified. jp6 Assistance ADL's: requires no assistance with activities of daily living. Abuse/DV Screen: The patient / caregiver reports he/she is: not in a situation that causes fear, pain or injury. Nutritional screening: No deficits noted. Advance Directives: Currently, there is no health care proxy. There is no active DNR order. There is no living will. home support is adequate. Assessment: 00:09 General: Appears distressed, uncomfortable, well developed, well nourished, Behavior is jp6 appropriate for age, cooperative. Pain: Location: abdomen Pain currently is 8 out of 10 on a pain scale. Neurological: No deficits noted. Level of Consciousness is awake, alert, Oriented to person, place, time. EENT: No deficits noted. Cardiovascular: No deficits noted. Heart tones S1 S2 present. Respiratory: Airway is patent Respiratory effort is even, unlabored, Respiratory pattern is regular, symmetrical, Breath sounds are clear bilaterally. GI: Abdomen is flat, non- distended Bowel sounds present X 4 quads. hyperactive in right upper quadrant, left upper quadrant, right lower quadrant and left lower quadrant Abd is tender to palpation in right lower quadrant Abd is rigid Guarding noted. : No deficits noted. Derm: Skin is pink, warm & dry. Musculoskeletal: No deficits noted. 01:00 Reassessment: states pain is 4/10. Pain: Pain currently is 4 out of 10 on a pain scale. jp6 Cardiovascular: No deficits noted. Respiratory: Airway is patent Respiratory effort is even, unlabored, Respiratory pattern is regular, symmetrical. Derm: Skin is pink, warm & dry. 02:00 Reassessment: Patient appears in no apparent distress at this time. Patient states jp6 feeling better. General: Appears in no apparent distress, comfortable, Behavior is appropriate for age, cooperative. Pain: Pain currently is 3 out of 10 on a pain scale. Neurological: Level of Consciousness is awake, alert, Oriented to person, place, time. Respiratory: Airway is patent Respiratory effort is even, unlabored, Respiratory pattern is regular, symmetrical. Derm: Skin is pink, warm & dry. 02:54 Reassessment: Patient appears in no apparent distress at this time. Patient states jp6 feeling better. Pain: Location: abdomen Pain currently is 4 out of 10 on a pain scale. Respiratory: Airway is patent Respiratory effort is even, unlabored, Respiratory pattern is regular, symmetrical. Derm: Skin is pink, warm & dry. 04:15 Reassessment: c/o abdominal pain 6/10. VS stable. IV antibiotics infusing as ordered.. jp6 Pain: Location: abdomen Pain currently is 6 out of 10 on a pain scale. Neurological: Level of Consciousness is awake, alert, Oriented to person, place, time. EENT: No deficits noted. Cardiovascular: No deficits noted. Respiratory: Airway is patent Respiratory effort is even, unlabored, Respiratory pattern is regular, symmetrical. Derm: Skin is pink, warm & dry. Vital Signs: 10/10 23:06 BP 151 / 70; Pulse 89; Resp 18 S; Temp 96.7(O); Pulse Ox 100% on R/A; Weight 70.31 kg dd6 (R); Height 5 ft. 7 in. (170.18 cm) (R); Pain 10; 10/11 00:29 BP 134 / 75 (auto/); jp6 00:30 Pulse 86 MON; Pulse Ox 100% ; jp6 00:59 BP 132 / 69 (auto/); jp6 01:00 Pulse 78 MON; Pulse Ox 98% ; jp6 01:29 BP 135 / 63 (auto/); jp6 01:31 Pulse 82 MON; Pulse Ox 96% ; jp6 01:59 BP 123 / 61 (auto/); jp6 02:00 Pulse 80 MON; Pulse Ox 95% ; jp6 04:02 BP 133 / 63 (auto/); jp6 04:03 Pulse 82 MON; Pulse Ox 96% ; jp6 04:03 Temp 99(O); Pain 6/10; jp6 04:03 Pulse 82 MON; Pulse Ox 96% ; jp6 10/10 23:06 Body Mass Index 24.28 (70.31 kg, 170.18 cm) dd6 Vitals: 10/10 23:06 Log In Time: October 10, 2016 at 23:04. dd6 ED Course: 23:05 Patient visited by Prakash Berry PCA. dd6 23:05 [facility] dd6 23:05 Patient moved to Waiting dd6 23:06 Patient moved to Pre RCE dd6 23:10 Triage Initiated kmg1 23:53 Patient moved to 8 kmg1 23:54 Bridget Gomez,RN is Primary Nurse. jp6 23:54 Quincy Vela DO is Attending Physician. cs11 23:54 Patient visited by Quincy Vela DO. cs11 10/11 00:09 The patient / caregiver is instructed regarding the plan of care and ED course. jp6 00:09 Inserted saline lock: 20 gauge in right antecubital area and blood collected. No jp6 procedures done that require assistance. 00:54 Patient visited by Lisbet Galindo PCA. negro 01:43 [facility] Payment Agreement was scanned into [employer] and attached to record. [facility] 02:02 Patient visited by Bridget Gomez RN. jp6 03:03 Patient visited by Lisbet Galindo PCA. negro 03:19 CT ABD & PELVIS: IV Contrast Only Returned. EDMS 03:30 Yunior Partida MD is Hospitalizing Provider. cs11 04:15 Pulse ox on. NIBP on. jp6 10:59 T-Sheet-- Draft Copy was scanned into [employer] and attached to record. gb Administered Medications: 00:30 Drug: NS 0.9% 2000 ml [sodium chloride 0.9 % intravenous solution] Route: IV; Rate: jp6 bolus; Site: right antecubital; 00:30 Drug: Dilaudid - HYDROmorphone 1 mg [hydromorphone 1 mg/mL injection syringe (1 mL)] jp6 Route: IVP; Site: right antecubital; 00:30 Drug: Ondansetron 4 mg Route: IVP; Site: right antecubital; jp6 04:04 Drug: Piperacillin-Tazobactam 3.375 grams [piperacillin-tazobactam 3.375 gram jp6 intravenous solution] Route: IVPB; Infused Over: 30 mins; Site: right antecubital; 04:05 Drug: Dilaudid - HYDROmorphone 1 mg [hydromorphone 1 mg/mL injection syringe (1 mL)] jp6 Route: IVP; Site: right antecubital; Order Results: Lab Order: CBC with Diff; SPEC'M 10/11/16 00:05 Test: WHITE BLOOD COUNT; Value: 10.2; Range: 4.0-10.0; Abnormal: Above high normal; Units: K/mm3; Status: F Test: RED BLOOD COUNT; Value: 5.19; Range: 4.30-6.10; Units: M/mm3; Status: F Test: HEMOGLOBIN; Value: 14.1; Range: 14.0-18.0; Units: g/dl; Status: F Test: HEMATOCRIT; Value: 45.2; Range: 42.0-52.0; Units: %; Status: F Test: MEAN CORPUSCULAR VOLUME; Value: 87.0; Range: 80.0-96.0; Units: fl; Status: F Test: MEAN CORPUSCULAR HEMOGLOBIN; Value: 27.2; Range: 27.0-33.0; Units: pg; Status: F Test: MEAN CORPUSCULAR HGB CONC; Value: 31.2; Range: 32.0-36.5; Abnormal: Below low normal; Units: g/dl; Status: F Test: RED CELL DISTRIBUTION WIDTH; Value: 12.9; Range: 11.5-14.5; Units: %; Status: F Test: PLATELET COUNT, AUTOMATED; Value: 170; Range: 150-450; Units: k/mm3; Status: F Test: NEUTROPHILS %; Value: 84.8; Range: 36.0-66.0; Abnormal: Above high normal; Units: %; Status: F Test: LYMPH %; Value: 7.0; Range: 24.0-44.0; Abnormal: Below low normal; Units: %; Status: F Test: MONO %; Value: 5.1; Range: 0.0-5.0; Abnormal: Above high normal; Units: %; Status: F Test: EOS %; Value: 1.0; Range: 0.0-3.0; Units: %; Status: F Test: BASO %; Value: 1.1; Range: 0.0-1.0; Abnormal: Above high normal; Units: %; Status: F Test: LARGE UNSTAINED CELL %; Value: 0.9; Range: 0.0-4.0; Units: %; Status: F Test: NEUTROPHILS #; Value: 8.6; Range: 1.8-7.7; Abnormal: Above high normal; Units: K/mm3; Status: F Test: LYMPH #; Value: 0.8; Range: 1.5-6.5; Abnormal: Below low normal; Units: K/mm3; Status: F Test: MONO #; Value: 0.5; Range: 0.0-0.8; Units: K/mm3; Status: F Test: EOS #; Value: 0.1; Range: 0.0-0.50; Units: K/mm3; Status: F Test: BASO #; Value: 0.1; Range: 0.0-0.2; Units: K/mm3; Status: F Test: LARGE UNSTAINED CELL #; Value: 0.1; Range: 0.0-0.4; Units: K/mm3; Status: F Lab Order: MED Profile; SPEC'M 10/11/16 00:05 Test: GLUCOSE, FASTING; Value: 91; Range: 70-105; Units: MG/DL; Status: F Test: BLOOD UREA NITROGEN; Value: 16; Range: 7-18; Units: MG/DL; Status: F Test: CREATININE FOR GFR; Value: 1.67; Range: 0.70-1.30; Abnormal: Above high normal; Units: MG/DL; Status: F Test: GLOMERULAR FILTRATION RATE; Value: 54.5; Range: >60; Abnormal: Below low normal; Status: F Test: SODIUM LEVEL; Value: 141; Range: 136-145; Units: MEQ/L; Status: F Test: POTASSIUM SERUM; Value: 4.0; Range: 3.5-5.1; Units: MEQ/L; Status: F Test: CHLORIDE LEVEL; Value: 102; Range: 98-107; Units: MEQ/L; Status: F Test: CARBON DIOXIDE LEVEL; Value: 31; Range: 21-32; Units: MEQ/L; Status: F Test: ANION GAP; Value: 8; Range: 8-16; Units: MEQ/L; Status: F Test: CALCIUM LEVEL; Value: 9.1; Range: 8.5-10.1; Units: MG/DL; Status: F Test Note: ; Units are mL/min/1.73 m2 Chronic Kidney Disease Staging per NKF: Stage I & II GFR >=60 Normal to Mildly Decreased Stage III GFR 30-59 Moderately Decreased Stage IV GFR 15-29 Severely Decreased Stage V GFR <15 Very Little GFR Left ESRD GFR <15 on OUTSIDE REPAIRER SPECIAL Lab Order: Liver Profile; SPEC'M 10/11/16 00:05 Test: AST/SGOT; Value: 188; Range: 15-37; Abnormal: Above high normal; Units: U/L; Status: F Test: ALT/SGPT; Value: 80; Range: 12-78; Abnormal: Above high normal; Units: U/L; Status: F Test: ALKALINE PHOSPHATASE; Value: 132; Range: 45-117; Abnormal: Above high normal; Units: U/L; Status: F Test: BILIRUBIN,TOTAL; Value: 0.9; Range: 0.2-1.0; Units: MG/DL; Status: F Test: BILIRUBIN,DIRECT; Value: 0.2; Range: 0.0-0.2; Units: MG/DL; Status: F Test: TOTAL PROTEIN; Value: 8.1; Range: 6.4-8.2; Units: GM/DL; Status: F Test: ALBUMIN; Value: 4.2; Range: 3.2-5.2; Units: GM/DL; Status: F Test: ALBUMIN/GLOBULIN RATIO; Value: 1.08; Range: 1.00-1.93; Status: F Lab Order: Amylase; SPEC' 10/11/16 00:05 Test: AMYLASE; Value: 129; Range: 25-115; Abnormal: Above high normal; Units: U/L; Status: F Lab Order: Lipase; [facility] 10/11/16 00:05 Test: LIPASE; Value: 88; Range: 73-393; Units: U/L; Status: F Lab Order: Pt & Aptt; [facility] 10/11/16 00:05 Test: PROTHROMBIN TIME; Value: 13.3; Range: 12.3-14.5; Units: SECONDS; Status: F Test: INR; Value: 1.00; Status: F Test: PARTIAL THROMBOPLASTIN TIME; Value: 31.4; Range: 26.6-37.1; Units: SECONDS; Status: F Test Note: ; THERAPUTIC HUMAN INR VALUES INDICATIONS NORMAL RANGES PROPHYLAXIS/TREATMENT OF: VENOUS THROMBOSIS 2.0-3.0 PULMONARY EMBOLISM 2.0-3.0 PREVENTION OF SYSTEMIC EMBOLISM FROM: TISSUE HEART VALVES 2.0-3.0 ACUTE MYOCARDIAL INFARCTION 2.0-3.0 VALVULAR HEART DISEASE 2.0-3.0 ATRIAL FIBRILLATION 2.0-3.0 MECHANICAL VALVES(HIGH RISK) 2.5-3.5 RECURRENT MYOCARDIAL INFARCTION 2.5-3.5 Radiology Order: CT ABD & PELVIS: IV Contrast Only Test: CT ABD & PELVIS: IV Contrast Only REASON FOR EXAMINATION: Appendicitis; ; CLINICAL HISTORY: Abdominal pain.; TECHNIQUE: Multiple axial, sagittal and coronal CT images were obtained through the abdomen and pelvi; s after administration of oral and intravenous contrast material. Images were obtained before and aft; er IV contrast administration.; COMMENTS:; The liver is of uniform attenuation without mass or defect. There is no intra or extrahepatic biliary; ductal dilatation. The spleen is normal. The gallbladder is within normal limits. The pancreas is of; normal contour and attenuation characteristics. There is no evidence of adrenal mass.; Both kidneys demonstrate prompt and equal nephrograms. The kidneys are normal in size, shape and conf; iguration. There is no evidence of renal or ureteral mass. No renal or ureteral calculi are identifie; d. There is no hydroureter or hydronephrosis.; Enlarged appendix measuring 1.3 cm. Abnormal enhancement of its wall. Surrounding 3 fluid and fat str; anding. There is no bowel wall thickening. No evidence for small or large bowel obstruction.; There is no evidence of intrinsic or extrinsic bladder mass. Mild diffuse thickening of the wall of t; he bladder. It can progress to the stomach.; Images of the lung bases show no evidence of pleural or parenchymal mass. There are no pleural effusi; ons.; The bony structures are free of lytic or blastic lesions. Multilevel degenerative changes are seen in; volving the thoracolumbar spine. Scattered calcifications are seen involving the aorta and major bran; ches compatible with atherosclerosis.; IMPRESSION:; Acute appendicitis.; No perforation or abscess formation.; Gastroparesis.; Thickened bladder.; Thank you for your kind referral of this patient.; ; Outcome: 03:30 Decision to Hospitalize by Provider. cs11 04:27 Discharge Assessment: Patient awake, alert and oriented x 3. No cognitive and/or jp6 functional deficits noted. Patient verbalized understanding of disposition instructions. patient administered narcotics - yes. Patient was admitted to the hospital or transferred to another facility. The following High Risk Discharge criteria are identified: None. Admitted to Pediatrics accompanied by tech, via stretcher, with chart. Condition: unchanged. CT Study completed. Admission hand-off: Report called to Bridget GUTIÉRREZ. Property :Personal belongings accompany Pt. 04:39 Patient left the ED. jp6 Signatures: Dispatcher [employer] EDMS Essie Rosado, RN RN kmg1 Leslie Arnold, Reg Reg gb Prakash Berry, SENIOR ORACLE DATABASE DEVELOPER SENIOR ORACLE DATABASE DEVELOPER dd6 Mateo, Lisbet, SENIOR ORACLE DATABASE DEVELOPER SENIOR ORACLE DATABASE DEVELOPER negro Quincy Vela, DO DO cs11 Katiuska Yeboah Bridget Donovan,RN RN jp6 Chart Complete MTDD
== END 2016-10-12 12:25 | disposition home or self-care (01) ==
LOC: M ED 23:04 → M OROP 23:05 → M PED 10-11 04:35 → M OROP 10-11 04:35 → M PED 10-12 12:25
PROVIDERS: ATTEND Surgery
DX: K35.3 Acute appendicitis with localized peritonitis (principal)
CPT/HCPCS: 36415; 44970; 74177; 80048; 80076; 82150; 83690; 85025; 85610; 85730; 88304; 96374; 96375; 96376; 99285; J1170; J1885; J2250; J2405; J2543; J2710; J3010; Q9967